=== PATIENT | female | born 1970 | race American Indian/Alaskan Native ===

== ENCOUNTER 2018-07-03 15:14 | Outpatient (CLI) | payer OTHER ==
--- NOTE | 2018-07-03 22:50 | XRay Report ---
PROCEDURE: XR KNEE 1-2V RT TECHNIQUE: AP and lateral views of the right knee were obtained. HISTORY: DISABILITY EXAM, PAIN IN RIGHT KNEE COMPARISONS: None available. FINDINGS: Surgical changes from cruciate ligament reconstruction with interference screws in the femoral tibial tunnels. There is no acute fracture. There is severe medial and patellofemoral compartment osteoarthritis noti ng joint space narrowing and bulky osteophyte formation. Small volume joint effusion. Additional mode rate lateral compartment degenerative changes. IMPRESSION: 1. No acute osseous abnormality. 2. 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 3. Changes from previous anterior cruciate ligament reconstruction. This document is electronically signed by Neptali Hunt DO., July 03 2018 10:48:12 PM ET
== END 2018-07-03 15:15 | disposition home or self-care (01) ==
LOC: XRAY 15:14
PROVIDERS: ATTEND Internal Medicine
DX: Z02.71 Encounter for disability determination (principal); M17.11 Unilateral primary osteoarthritis, right knee